=== PATIENT | female | born 1990 | race Caucasian/White ===

== ENCOUNTER → 2017-11-13 15:06 | Outpatient (CLI) | payer OTHER, SELFPAY ==
[2017-11-13 15:32] LABS: Absolute Lymphocyte Count 1.48 X10^3/ul (0.83-4.51); Absolute Neutrophil Count 7.2 X10^3/uL (2.0-7.7); Basophil# 0.02 X10^3/uL; Basophil% 0.2 % (0-1); Eosinophil# 0.37 X10^3/uL; Eosinophils% 3.8 % (0-5); Hematocrit 32.5 % (37-47); Hemoglobin 10.8 g/dl (12.0-15.0); Lymphocyte # 1.48 X10^3/ul (4.0); Lymphocyte % 15.2 % (19-41); Mean Corp Hgb Conc 33.2 g/gl (32-36); Mean Corpuscular Hgb 31.2 pg (27.0-32.0); Mean Corpuscular Volume 93.9 fL (81-99); Monocyte# 0.56 X10^3/uL; Monocyte% 5.8 % (0-10); Neutrophil # 7.21 X10^3/uL (2.7-7.7); Neutrophil % 74.1 % (47-70); Platelet Count 197 K/mm3 (150-450); RBC Distribution Width CV 13.6 % (11.6-14.6); RBC Distribution Width SD 44.9 fl (35.1-43.9); Red Blood Count 3.46 M/mm3 (4.2-5.4); White Blood Count 9.7 K/mm3 (4.4-11.0)
[2017-11-13 15:35] LABS: POSITIVE COUNT NO; POSITIVE DIFFERENTIAL NO; POSITIVE MORPHOLOGY NO
[2017-11-13 16:11] LABS: Glucose Challenge Gest 1H 50g 118 mg/dL (70-140)
== END ==
PROVIDERS: Family Provider Family Medicine; PCP Family Medicine; Visit Provider Obstetrics & Gynecology
DX: Z34.81 Encounter for supervision of other normal pregnancy, first trimester (principal)
CPT/HCPCS: 36415; 82950; 85025

== ENCOUNTER → 2017-12-25 15:41 | Outpatient (CLI) | payer OTHER, SELFPAY ==
[2017-12-25 16:10] LABS: Absolute Lymphocyte Count 2.71 X10^3/ul (0.83-4.51); Absolute Neutrophil Count 7.7 X10^3/uL (2.0-7.7); Basophil# 0.01 X10^3/uL; Basophil% 0.1 % (0-1); Eosinophil# 0.27 X10^3/uL; Eosinophils% 2.4 % (0-5); Hematocrit 33.9 % (37-47); Hemoglobin 11.2 g/dl (12.0-15.0); Lymphocyte # 2.71 X10^3/ul (4.0); Lymphocyte % 23.6 % (19-41); Mean Corpuscular Hgb 31.3 pg (27.0-32.0); Mean Corpuscular Volume 94.7 fL (81-99); Mean Platelet Vol. 10.1 fl (6.2-12.0); Monocyte% 6.1 % (0-10); Neutrophil # 7.68 X10^3/uL (2.7-7.7); Platelet Count 182 K/mm3 (150-450); RBC Distribution Width CV 14.9 % (11.6-14.6); RBC Distribution Width SD 49.4 fl (35.1-43.9); Red Blood Count 3.58 M/mm3 (4.2-5.4); White Blood Count 11.5 K/mm3 (4.4-11.0)
[2017-12-25 16:12] LABS: POSITIVE COUNT NO; POSITIVE DIFFERENTIAL NO; POSITIVE MORPHOLOGY NO
== END ==
PROVIDERS: Family Provider Family Medicine; PCP Family Medicine; Visit Provider Nurse Practitioner Women's Health
DX: O99.013 Anemia complicating pregnancy, third trimester (principal); O12.10 Gestational proteinuria, unspecified trimester; Z3A.00 Weeks of gestation of pregnancy not specified
CPT/HCPCS: 36415; 85025

== ENCOUNTER → 2017-12-25 18:15 | Outpatient (CLI) | payer OTHER, SELFPAY ==
[2017-12-25 18:48] LABS: Protein, Urine (Random) 18.6 mg/dL (<11.9); Protein:Creat Ratio 85 mg/g CRE (0-200)
== END ==
PROVIDERS: Family Provider Family Medicine; PCP Family Medicine; Visit Provider Nurse Practitioner Women's Health
DX: O12.10 Gestational proteinuria, unspecified trimester (principal); Z3A.00 Weeks of gestation of pregnancy not specified
CPT/HCPCS: 82570; 84156

== ENCOUNTER → 2018-01-08 16:31 | Outpatient (CLI) | payer OTHER, SELFPAY ==
[2018-01-08 19:11] LABS: Group B Strep DNA By PCR Negative (Negative); Internal Control PASS; Probe Check PASS; Specimen Processing Control PASS
== END ==
PROVIDERS: Family Provider Family Medicine; PCP Family Medicine; Visit Provider Obstetrics & Gynecology
DX: Z34.81 Encounter for supervision of other normal pregnancy, first trimester (principal)
CPT/HCPCS: 87081; 87653

== ENCOUNTER 2018-02-02 20:15 | Inpatient (IN) | payer OTHER, SELFPAY ==
--- NOTE | 2018-02-02 20:15 | DT_ITS ---
This patient was seen during an EMR downtime January 28, 2018 - February 04, 2018. This patient may have a combination of paper and electronic documentation or all paper documentation. All documentation is viewable within the e-chart portion of [facility] for each patient visit.
--- NOTE | 2018-02-04 13:49 | DCINST_ITS ---
Discharge Diet: No Restrictions Discharge Activity: Return to Normal Activity, May not drive while taking narcotic pain medications., May Shower May resume sexual activity in: 4-6 weeks Call your doctor if your incision/area has: Continuous Slow Oozing, Sudden Increased Bleeding, Increased Pain/ Swelling, Increased Redness, Foul Smelling Discharge Additional Instructions: If you experience any of the following, contact your healthcare provider. * Bleeding that soaks a pad every hour for 2 hours * Fever 100.4 or higher * Unrelieved incision or abdominal pain * Swelling, redness, discharge or bleeding from your incision or episiotomy site * Your incision begins to separate * Problems urinating (including inability to urinate or burning while urinating) . * Visual changes * Severe headache * Flu-like symptoms * Pain or redness in one of both of your breasts * Pain, warmth, tenderness or swelling in your legs, especially the calf area * Frequent nausea and vomiting * Symptoms of depression or anxiety If you experience any of the following, call 911 or go to the nearest Emergency Room. * Chest pain * Problems breathing * Seizure activity * Partial or complete paralysis of a body part, slurred speech, weakness or drooping of the face, or a sudden inability to walk or hold your balance Allergies/Adverse Reactions: Allergies ciprofloxacin [From Cipro] Allergy (Intermediate, Verified 01/22/18 15:20) rash penicillin G Allergy (Intermediate, Verified 01/22/18 15:20) rash flaygl Allergy (Intermediate, Uncoded 01/15/18 15:50) rash Medications to take at Discharge vitamin,calcium,yyxmrusr-zhet-dqnqh acid tablet 1 tab PO QDAY 09/18/17 Please Follow Up With: Trish Schrader MD - [phone] When: Call to make an appointment with your doctor in 6 weeks. If you had elevated Blood pressure or 4th degree laceration you will need to be seen in 2 weeks. Primary Care Physician: Joan Saez MD [Primary Care Provider] -
--- NOTE | 2018-02-04 13:49 | PCM.DCVAG ---
Discharge Diet: No Restrictions Discharge Activity: Return to Normal Activity, May not drive while taking narcotic pain medications., May Shower May resume sexual activity in: 4-6 weeks Call your doctor if your incision/area has: Continuous Slow Oozing, Sudden Increased Bleeding, Increased Pain/ Swelling, Increased Redness, Foul Smelling Discharge Additional Instructions: If you experience any of the following, contact your healthcare provider. Bleeding that soaks a pad every hour for 2 hours Fever 100.4 or higher Unrelieved incision or abdominal pain Swelling, redness, discharge or bleeding from your incision or episiotomy site Your incision begins to separate Problems urinating (including inability to urinate or burning while urinating). Visual changes Severe headache Flu-like symptoms Pain or redness in one of both of your breasts Pain, warmth, tenderness or swelling in your legs, especially the calf area Frequent nausea and vomiting Symptoms of depression or anxiety If you experience any of the following, call 911 or go to the nearest Emergency Room. Chest pain Problems breathing Seizure activity Partial or complete paralysis of a body part, slurred speech, weakness or drooping of the face, or a sudden inability to walk or hold your balance Allergies/Adverse Reactions: Allergies ciprofloxacin [From Cipro] Allergy (Intermediate, Verified 01/22/18 15:20) rash penicillin G Allergy (Intermediate, Verified 01/22/18 15:20) rash flaygl Allergy (Intermediate, Uncoded 01/15/18 15:50) rash Medications to take at Discharge vitamin,calcium,avmsmnwf-juyq-zudly acid tablet 1 tab PO QDAY 09/18/17 Please Follow Up With: Trish Schrader MD - [phone] When: Call to make an appointment with your doctor in 6 weeks. If you had elevated Blood pressure or 4th degree laceration you will need to be seen in 2 weeks. Primary Care Physician: Joan Saez MD [Primary Care Provider] -
[2018-02-04 14:15] VITALS: BP 96/62; PULSE 68; RESP 16; TEMP 36.5; O2SAT 97
[2018-02-04] MEDS: Acetaminophen 500 MG Tablet 1000 MG PO (14:18)
[2018-02-05 15:43] LABS: Hematocrit 36.2 % (37-47); Hemoglobin 12.2 g/dl (12.0-15.0); Mean Corp Hgb Conc 33.7 g/gl (32-36); Mean Corpuscular Hgb 31.6 pg (27.0-32.0); Mean Corpuscular Volume 93.8 fL (81-99); Mean Platelet Vol. 10.7 fl (6.2-12.0); Platelet Count 182 K/mm3 (150-450); RBC Distribution Width CV 14.4 % (11.6-14.6); RBC Distribution Width SD 49.4 fl (35.1-43.9); Red Blood Count 3.86 M/mm3 (4.2-5.4); Scan Indicated on CBC? Y/N NO; White Blood Count 12.8 K/mm3 (4.4-11.0)
== END 2018-02-04 15:50 | disposition home or self-care (01) | DRG 775 ==
PROVIDERS: Admitting Provider Obstetrics & Gynecology; Family Provider Family Medicine; PCP Family Medicine; Visit Provider Obstetrics & Gynecology
DX: O80 Encounter for full-term uncomplicated delivery (principal); Z37.0 Single live birth; Z3A.39 39 weeks gestation of pregnancy
CPT/HCPCS: 59050; 85027; 86850; 86900; 99218; J7120; G0378

== ENCOUNTER 2018-02-06 10:58 | Emergency (ER) | payer OTHER, SELFPAY ==
[2018-02-06 10:58] VITALS: BP 121/67; PULSE 83; RESP 12; TEMP 36.6; BMI 25.8
--- NOTE | 2018-02-06 11:17 | RAD_ITS ---
STUDY: X-RAY - ABDOMEN/PELVIS REASON FOR EXAM: Female, 27 years old. Constipation. Status post vaginal delivery. TECHNIQUE: AP supine and upright views of the abdomen and pelvis. COMPARISON: None. FINDINGS: Normal visualized lung bases. There is a moderate amount of colonic fecal material in the rectum. There is no demonstrated free abdominal air. The visualized liver, spleen and kidneys are grossly normal in size and morphology. Normal soft tissue structures. Normal visualized osseous structures. RAD/Abd Decub and/or Erect(Portabl IMPRESSION: There is a moderate amount of colonic fecal material in the rectum. Electronically Signed: Chau Castelan MD at 11:44 EDT Tel , Service support ,
[2018-02-06] MEDS: Magnesium Citrate 300 ML PO (13:15)
--- NOTE | 2018-02-06 14:23 | ED.RN ---
PT W/VERY LARGE AMT SOFT STOOL. REPORTS RELIEF. HYGIENE CARE COMPLETED. DR BETHEA INFORMED
--- NOTE | 2018-02-06 15:04 | ED.VISSUMM ---
- ER Visit Summary Date of Service: 02/06/18 Chief Complaint: Constipation History of Present Illness: The patient is a 27 F status post vaginal delivery on Sunday. Patient states she is doing well. She has a bowel movement since before she had a delivery. Complaining of fullness. She is Ab0. Denies any dysuria. No fever. No prior abdominal surgeries. Physical Examination: Well-appearing young female. Vital signs are stable afebrile. She does not look septic or toxic. No distress. H EENT exam unremarkable moist wheeze members. Neck nontender. Lungs clear to auscultation bilaterally. Heart regular rate and rhythm no murmur. Abdomen is soft and nontender. Normal bowel sounds no peritoneal signs. No signs of obstruction. No hernias or masses. No distention. She is moving all 4 extremities neurovascular intact. Back exam nontender. Neurologically she is awake and alert. Test Results: KUB was obtained shows increased stool in the rectal vault. Emergency Department Course and Treatment: Patient has constipation and home enemas, softeners and magnesium citrate. Treatment Plan: Nursing attempted a soapsuds enema and it was really unsuccessful. Patient was then given the option of additional magnesium citrate or digital disimpaction. She drinks 300 cc more magnesium citrate had a large bowel movement with significant relief. Currently she is resting comfortably and feels comfortably discharged home. Disposition: Discharge Impression: Acute constipation Status post vaginal delivery This note was generated with [employer] dictation software. It may contain incorrect words, spelling, and punctuation that were not noted in review of the chart prior to signing ED Disposition - Plan for ED Patient: Chief Complaint: Constipation Referrals: Joan Saez MD [Primary Care Provider] -
--- NOTE | 2018-02-06 15:07 | ED.DEP ---
ED Disposition - Plan for ED Patient: Disposition: Home or Assisted Living Chief Complaint: Constipation Instructions: ED Constipation Referrals: Joan Saez MD [Primary Care Provider] - 1-2 Days if not improving Additional Instructions: Plenty of fluids and rest. Continue fluids, fiber and water to prevent further constipation. Follow-up your primary care physician if not improving or return to ER feeling worse.
[2018-02-06 15:21] VITALS: BP 121/79; PULSE 68; RESP 16; O2SAT 100
--- NOTE | 2018-02-06 15:22 | ED.RN ---
THIS NURSE REVIEWED D/C INSTRUCTIONS WITH PT. PT VERBALIZED UNDERSTANDING OF INSTRUCTIONS. PT DENIES FURTHER NEEDS OR QUESTIONS AT THIS TIME.
== END 2018-02-06 15:22 | disposition home or self-care (01) ==
PROVIDERS: Emergency Provider Emergency Medicine; Family Provider Family Medicine; PCP Family Medicine
DX: K59.00 Constipation, unspecified (principal)
CPT/HCPCS: 74019; 99283

== ENCOUNTER 2018-02-07 14:45 | Outpatient (CLI) | payer OTHER, SELFPAY | END 2018-02-07 15:45 | disposition home or self-care (01) | LOC: WPOUT 14:52 → WP 14:53 | PROVIDERS: Family Provider Family Medicine; PCP Family Medicine; Visit Provider Obstetrics & Gynecology | DX: Z39.1 Encounter for care and examination of lactating mother (principal) | CPT/HCPCS: 96152 ==

== ENCOUNTER 2018-02-14 11:05 | Outpatient (CLI) | payer OTHER, SELFPAY | END 2018-02-14 12:05 | disposition home or self-care (01) | LOC: WPOUT 11:15 → WP 11:15 | PROVIDERS: Family Provider Family Medicine; PCP Family Medicine; Visit Provider Obstetrics & Gynecology | DX: Z39.1 Encounter for care and examination of lactating mother (principal) | CPT/HCPCS: 96152 ==

== ENCOUNTER → 2018-06-03 13:17 | Outpatient (CLI) | payer OTHER, SELFPAY | PROVIDERS: Family Provider Family Medicine; PCP Family Medicine | DX: K50.90 Crohn's disease, unspecified, without complications (principal) | CPT/HCPCS: 36415 ==

== ENCOUNTER 2019-04-27 12:45 | Emergency (ER) | payer OTHER, SELFPAY ==
[2019-04-27 12:47] VITALS: BP 112/85; PULSE 82; RESP 16; TEMP 36.1; O2SAT 98; BMI 22.6
--- NOTE | 2019-04-27 13:26 | ED.DCSUM_ITS ---
History of Present Illness Chief Complaint: Nausea/Vomiting Informant: Patient - Abdominal Pain/Flank Pain Onset: Today Timing: Continuous Location: Diffuse - sore abdominal wall Current Severity: Moderate Maximum Severity: Moderate Worsened by: Food Relieved by: Nothing - Nausea/Vomiting/Emesis GI Symptom: Nausea, Vomiting Onset: Today Quality: Nonbilious. Negative for: Blood streaks, Coffee ground, Hematemesis Severity: Severe - Diarrhea/Melena/Hematochezia GI Symptom: Negative for: Diarrhea, Melena, Hematochezia Associated Symptoms: Negative for: Dysuria, Frequency, Hematuria, Urgency Narrative: Patient states she was at her sister's wedding yesterday, and as a result last night she drank a lot of alcohol. She thinks she drank too much. She has been vomiting all morning. She denies any abdominal pain, other than abdominal wall muscular soreness from all of the vomiting/dry-heaving. She has a history of Crohn's, and has been well-controlled without the need for maintenance medications, states she can tell when she is having a flare-up, and does not feel like that is going on now. She usually can trigger the Crohn's symptoms with certain foods, such as strawberries, and denies having any of those foods recently or yesterday. Past Medical History - Allergies and Home Meds Allergies/Adverse Reactions: Allergies ciprofloxacin [From Cipro] Allergy (Intermediate, Verified 04/27/19 12:47) rash penicillin G Allergy (Intermediate, Verified 04/27/19 12:47) rash metronidazole [From Flagyl] Allergy (Verified 04/27/19 12:47) Rash nickel Allergy (Verified 04/27/19 12:47) Rash Primary Care Physician: Joan Saez MD [Primary Care Provider] - 1-2 Days if not improving Smoking Status: Never smoker Review of Systems General: Reports: Malaise. Denies: Chills, Fever, Sweats Eyes: Denies: Visual changes - bilaterally, Diplopia ENT: Denies: Rhinorrhea, Sore throat Cardiovascular: Denies: Chest pain, Palpitations Respiratory: Denies: Dyspnea, Cough, Dyspnea on exertion Gastrointestinal: Reports: Abdominal pain, Nausea, Vomiting. Denies: Diarrhea, Melena, Hematochezia Genitourinary: Denies: Dysuria, Hematuria, Frequency Musculoskeletal: Reports: Myalgias - muscles cramping up. Denies: Back pain, Swelling, Extremity Pain Skin: Denies: Rash, Wounds Neurological: Denies: Headache, Weakness, Numbness Physical Exam Vital Signs/Narrative: Vital Signs Temp Pulse Resp BP Pulse Ox 04/27/19 12:47 96.9 F L 82 16 112/85 H 98 Inital Vital Signs reviewed: Yes General: Well nourished, Well developed, No Acute Distress Head: Normocephalic, Atraumatic Eyes: Perrl, EOMI ENT: Moist mucous membranes, No rhinorrhea Neck: Supple, Nontender Cardiovascular: Regular rate, Regular rhythm, No murmurs Respiratory: No distress, CTA bilaterally, Chest nontender Abdomen: Soft, Nontender, Nondistended, Normal bowel sounds, No masses Back: Nontender, Normal Inspection Extremities: Nontender, No edema Skin: Normal color, No rash, No Trauma Neurological: Alert, Oriented x3, Cranial nerves II-XII grossly intact, Normal Strength, Normal Sensation Psychological: Normal affect, Normal Mood Diagnostic/Tx/Re-eval Laboratory Tests 04/27/19 04/27/19 Range/Units 13:27 13:27 WBC 6.2 (4.4-11.0) K/mm3 RBC 4.03 L (4.2-5.4) M/mm3 Hgb 12.2 (12.0-15.0) g/dL Hct 36.0 L (37-47) % MCV 89.3 (81-99) fL MCH 30.3 (27.0-32.0) pg MCHC 33.9 (32-36) g/dL RDW Std Deviation 41.1 (35.1-43.9) fl RDW Coeff of Timothy 12.5 (11.6-14.6) % Plt Count 218 (150-450) K/mm3 MPV 10.1 (6.2-12.0) fl Immature Gran % (Auto) 0.600 (0.0-0.9) % Neut % (Auto) 79.2 H (47-70) % Lymph % (Auto) 16.5 L (19-41) % [place] % (Auto) 3.2 (0-10) % Eos % (Auto) 0.2 (0-5) % Baso % (Auto) 0.3 (0-1) % Absolute Neuts (auto) 4.9 (2.0-7.7) X10^3/uL Absolute Lymphs (auto) 1.02 (0.83-4.51) X10^3/uL Nucleated RBC % 0 (0-5) % Sodium 140 (136-145) mmol/L Potassium 3.8 (3.5-5.1) mmol/L Chloride 108 H (98-107) mmol/L Carbon Dioxide 27.0 (21.0-32.0) mmol/L Anion Gap 5 (5-15) BUN 8 (7-18) mg/dL Creatinine 0.75 (0.55-1.02) mg/dL Estim Creat Clear Calc 102.68 ml/min Est GFR (MDRD) Af Amer 116 (>60) mL/min Est GFR (MDRD) Non-Af 96 (>60) mL/min BUN/Creatinine Ratio 10.6 (10-20) RATIO Glucose 111 H (74-106) mg/dL Calcium 8.8 (8.5-10.1) mg/dL Lipase 97 (73-393) U/L - Medical Decision Making Labs are all reassuringly within normal limits, she has no significant letter like disorders that need specific treatment. She was given fluids and Zofran, she was feeling better until she started drinking fluids, and she started feeling nauseated again so she was treated with Phenergan and observed. After a few hours, she is feeling much better, prefers to go home and rest. I do agree that this was likely due to the significant alcohol ingestion. Her abdomen was benign and she has no leukocytosis. She was prescribed Zofran and encouraged to drink plenty of fluids and to return for worsening symptoms and she is comfortable with this plan. ED Disposition - Plan for ED Patient: Disposition: Home or Assisted Living Diagnosis: Acute gastritis without bleeding Instructions: VOMITING (4y-Adult) Prescriptions: Ondansetron [Zofran] 8 mg PO Q8H PRN PRN #12 tab PRN Reason: Nausea Transmission Status: Pending to [id number] Referrals: Joan Saez MD [Primary Care Provider] - 1-2 Days if not improving
[2019-04-27] MEDS: Ondansetron 4 MG/2 ML Vial IV (13:28)
[2019-04-27] MEDS: 0.9% Normal Saline 1,000 ML 1000 ML IV (13:34)
[2019-04-27 13:50] LABS: Anion Gap 5 (5-15); BUN 8 mg/dL (7-18); BUN/Creat Ratio 10.6 RATIO (10-20); Calcium,Total 8.8 mg/dL (8.5-10.1); Chloride 108 mmol/L (98-107); Creatinine, Serum 0.75 mg/dL (0.55-1.02); EST Glomerular Filtration Rate 96 mL/min (>60); Est Glom Filt Rate - Afr Amer 116 mL/min (>60); Estimated Creatinine Clearance 102.68 ml/min; Glucose 111 mg/dL (74-106); Lipase 97 U/L (73-393); Potassium 3.8 mmol/L (3.5-5.1); Sodium Level 140 mmol/L (136-145)
[2019-04-27 13:58] LABS: Absolute Lymphocyte Count 1.02 X10^3/uL (0.83-4.51); Absolute Neutrophil Count 4.9 X10^3/uL (2.0-7.7); Basophil# 0.02 X10^3/uL; Basophil% 0.3 % (0-1); Eosinophil# 0.01 X10^3/uL; Eosinophils% 0.2 % (0-5); Hemoglobin 12.2 g/dL (12.0-15.0); Lymphocyte # 1.02 X10^3/ul (4.0); Lymphocyte % 16.5 % (19-41); Mean Corp Hgb Conc 33.9 g/dL (32-36); Mean Corpuscular Hgb 30.3 pg (27.0-32.0); Mean Corpuscular Volume 89.3 fL (81-99); Mean Platelet Vol. 10.1 fl (6.2-12.0); Monocyte% 3.2 % (0-10); NRBC Flagged by Analyzer 0 % (0-5); Neutrophil % 79.2 % (47-70); Platelet Count 218 K/mm3 (150-450); RBC Distribution Width CV 12.5 % (11.6-14.6); RBC Distribution Width SD 41.1 fl (35.1-43.9); Red Blood Count 4.03 M/mm3 (4.2-5.4); White Blood Count 6.2 K/mm3 (4.4-11.0)
[2019-04-27] MEDS: Ketorolac 30 MG/ML Syringe IV (15:06)
[2019-04-27 15:11] VITALS: BP 106/75; PULSE 67; RESP 16; O2SAT 98
[2019-04-27] MEDS: proMETHazine 25 MG/ML Syringe 12.5 MG IV (16:28)
[2019-04-27 17:38] VITALS: BP 112/69; PULSE 73; RESP 16; O2SAT 98
--- NOTE | 2019-04-27 17:41 | ED.RN ---
REVIEWED D/C INSTRUCTIONS, FOLLOW UP CARE, AND S/S THAT WOULD WARRANT A RETURN TO THE ED WITH PT. PT VERBALIZED AN UNDERSTANDING AND DENIES FURTHER QUESTIONS FOR THIS RN. PT SKIN P/W/D, RESP EVEN AND UNLABORED, PT A&O X 3, NO DISTRESS NOTED. PT AMBULATED OUT OF ED, GAIT STEADY.
== END 2019-04-27 17:41 | disposition home or self-care (01) ==
PROVIDERS: Emergency Provider Emergency Medicine; Family Provider Family Medicine; PCP Family Medicine
DX: K29.00 Acute gastritis without bleeding (principal); K50.90 Crohn's disease, unspecified, without complications
CPT/HCPCS: 80048; 83690; 85025; 96361; 96374; 96375; 99283; J7030; A4216; J2405

== ENCOUNTER 2021-01-31 03:03 | Emergency (ER) | payer MEDICAID, SELFPAY ==
[2021-01-31 03:04] VITALS: BP 129/85; PULSE 86; RESP 16; TEMP 36.2; O2SAT 95; BMI 28.0
--- NOTE | 2021-01-31 03:37 | EDS_ITS ---
HPI History of Present Illness Chief Complaint: Complaint Informant: patient Onset/Context/Timing Onset: Today Context: Sudden Onset Timing: Continuous Quality: Pressure, urgency, squeezing Location: Suprapubic Worsened by: Urination Relieved by: Nothing Narrative Narrative: Patient presents with dysuria and hematuria that began today. Patient states that she has been having some intermittent symptoms over the past week. Patient states the pain became acutely worse tonight. Patient noted some blood in her urine tonight. Patient states the pain feels like a pressure and urgency over the suprapubic area. Patient states it is worse with urination. Patient admits to some chills and sweats. Patient denies any fevers. Patient admits to nausea but denies any vomiting. [facility] Medical History (Updated 01/31/21 @ 04:[address] Fredy oGre DO) Anal fissure Crohn's disease Home Medications sulfamethoxazole-trimethoprim 1 tab PO BID #6 tablet 01/31/21 [Rx Last Taken Unknown] Allergy/AdvReac Type Severity Reaction Status Date / Time ciprofloxacin [From Cipro] Allergy Intermediate rash Verified 01/31/21 03:09 penicillin G Allergy Intermediate rash Verified 01/31/21 03:09 metronidazole [From Flagyl] Allergy Rash Verified 01/31/21 03:09 nickel Allergy Rash Verified 01/31/21 03:09 Family History Father Diabetes Multiple sclerosis Mother No problems noted. Social History Smoking Status: Never smoker alcohol intake: never substance use type: does not use what type of physical activity do you participate in: none seatbelt use: always additional social history: single ROS ROS ED Constitutional Constitutional ED: Reports chills and sweats; Denies fever(s) Eyes Eyes: Reports blurry vision; Denies diplopia ENT ENT ED: Denies rhinorrhea or sore throat Cardiovascular Cardiovascular: Denies chest pain or palpitations Respiratory/Chest Respiratory/Chest: Denies cough or dyspnea Gastrointestinal Gastrointestinal: Reports abdominal pain and nausea; Denies vomiting Genitourinary Genitourinary ED: Reports dysuria and hematuria Musculoskeletal Musculoskeletal: Denies back pain or neck pain Integumentary Denies abscess or rash Neurologic Neurologic: Reports headache(s); Denies weakness Allergic/Immunologic Allergic/Immunologic ED: Denies mouth swelling or urticaria EXAM Physical Exam Const Vital Signs: 01/31/21 03:04 01/31/21 04:35 Temperature 97.2 F L Temperature Source Temporal Pulse Rate 86 Respiratory Rate 16 16 Blood Pressure 129/85 H Blood Pressure Mean 99 Pulse Ox 95 Oxygen Delivery Method Room Air Positive well nourished and well developed General Appearance ED: well developed HEENT Reports moist mucous membranes Neck supple and no JVD Resp normal respiratory effort and clear to auscultation bilaterally Cardio regular rate and regular rhythm GI normal to inspection, nondistended, normoactive bowel sounds Palpation: soft and tender suprapubic; Negative for guarding or rebound tenderness present Neuro oriented x3, CN's II-XII intact bilaterally and no sensory deficits noted Sensorium / Orientation: alert Motor Exam: strength 5/5 throughout Psych mental status grossly normal MDM MDM MDM Narrative Medical decision making narrative: Urinalysis was obtained. Leukocyte esterase was 500. There were greater than 100 red blood cells and greater than 100 white blood cells. Urine test was negative. Urine culture was ordered. Patient was given a dose of Bactrim here. Patient was given a prescription for Bactrim. Patient was instructed to drink plenty of fluids. Patient was instructed to follow-up with her primary care physician in 5 to 7 days. Patient understood and was agreeable with the plan. All questions were answered. Lab Data Attestation: I reviewed the patient's lab results. Labs: Laboratory Results - last 24 hr 01/31/21 03:04 Urine Color Brown Urine Clarity Cloudy Urine pH 5.0 Ur Specific [place] 1.020 Urine Protein 500 H Urine Glucose (UA) Normal Urine Ketones 5 H Urine Occult Blood 250 H Urine Nitrite Negative Urine Bilirubin Negative Urine Urobilinogen Normal Ur Leukocyte Esterase 500 H Urine RBC > 100 SEEN Urine WBC >100 SEEN Ur Squamous Epith Cells 0-5 SEEN Urine Bacteria 1+ Urine Mucus 0 SEEN Urine Test Negative Discharge Plan Triage Chief Complaint: Complaint ED Provider: Fredy Gore Dx/Rx/DC Orders Clinical Impression: Acute hemorrhagic cystitis Instructions: ED Bladder Infection, Female (Adult) Prescriptions: New sulfamethoxazole-trimethoprim [sulfamethoxazole-trimethoprim] 1 TABLET tablet 1 tab PO BID Qty: 6 RF: 0 Primary Care Provider: Joan Saez Referrals: Joan Saez MD [Primary Care Provider] - 3-5 Days Disposition Disposition: Home, self care Discharge Date/Time: 01/31/21 04:35
[2021-01-31 03:45] LABS: Mucous, Urine 0 SEEN /hpf (<or=2+)
[2021-01-31 03:55] LABS: Color, Urine Brown (Yellow); Glucose, Dipstick Normal (Normal); Ketone-Dipstick 5 mg/dl (Negative); Leukocyte Esterase-Dipstick 500 /ul (Negative); Nitrite-Dipstick Negative (Negative); Occult Blood-Urine 250 /ul (Negative); Protein-Dipstick 500 mg/dl (Negative); Urine Bilirubin Dipstick Negative (Negative); Urine Clarity Cloudy (Clear); Urine Urobilinogen Normal (Normal)
[2021-01-31 04:09] LABS: Bacteria 1+ /hpf (None Seen); Internal QC Validated? YES +Cl - CLEAR BKGD; Pregnancy, Urine Negative Negative; Red Blood Cells-Urine > 100 SEEN /hpf (0-5); Squamous Epithelial Cells - UA 0-5 SEEN /hpf (5-10); White Blood Cells >100 SEEN /hpf (0-5)
[2021-01-31] MEDS: Smz/Tmp Ds Tablet 1 TABLET PO (04:32)
[2021-01-31 04:35] VITALS: RESP 16
== END 2021-01-31 04:35 | disposition home or self-care (01) ==
PROVIDERS: Emergency Provider Emergency Medicine; PCP Family Medicine
DX: N30.01 Acute cystitis with hematuria (principal)
CPT/HCPCS: 81001; 81025; 87086; 87088; 99283; A4216

== ENCOUNTER → 2021-06-13 16:43 | Outpatient (CLI) | payer OTHER, MEDICAID, SELFPAY ==
[2021-06-13 18:43] LABS: T4 Free Direct 0.75 ng/dL (0.76-1.46)
== END ==
PROVIDERS: PCP Nurse Practitioner; Referring Provider Nurse Practitioner; Visit Provider Nurse Practitioner
DX: E03.9 Hypothyroidism, unspecified (principal)
CPT/HCPCS: 36415; 84439; 84443; 84481

== ENCOUNTER → 2021-08-25 12:31 | Outpatient (CLI) | payer OTHER, MEDICAID, SELFPAY ==
[2021-08-25 15:45] LABS: T4 Free Direct 0.66 ng/dL (0.76-1.46)
[2021-08-27 09:59] LABS: Thyroid Peroxidase AB > 600 IU/mL (0-34)
== END ==
PROVIDERS: PCP Nurse Practitioner; Referring Provider Internal Medicine Endocrinology, Diabetes & Metabolism; Visit Provider Internal Medicine Endocrinology, Diabetes & Metabolism
DX: E03.8 Other specified hypothyroidism (principal); E06.3 Autoimmune thyroiditis
CPT/HCPCS: 36415; 84439; 84443; 86376

== ENCOUNTER 2021-11-21 12:59 | Outpatient (CLI) | payer OTHER, MEDICAID, SELFPAY ==
[2021-11-21 15:44] LABS: T4 Free Direct 0.72 ng/dL (0.76-1.46)
== END 2021-11-21 23:59 | disposition home or self-care (01) ==
LOC: MTLAB 13:00
PROVIDERS: PCP Nurse Practitioner; Referring Provider Internal Medicine Endocrinology, Diabetes & Metabolism; Visit Provider Internal Medicine Endocrinology, Diabetes & Metabolism
DX: E03.8 Other specified hypothyroidism (principal); E06.3 Autoimmune thyroiditis
CPT/HCPCS: 36415; 84439; 84443

== ENCOUNTER → 2022-01-09 | Outpatient (CLI) | payer OTHER, MEDICAID, SELFPAY | END | disposition home or self-care (01) | PROVIDERS: PCP Nurse Practitioner Family; Referring Provider Internal Medicine Endocrinology, Diabetes & Metabolism; Visit Provider Internal Medicine Endocrinology, Diabetes & Metabolism | DX: E03.8 Other specified hypothyroidism (principal); E06.3 Autoimmune thyroiditis | CPT/HCPCS: 36415; 84439; 84443 ==

== ENCOUNTER → 2022-02-08 | Outpatient (CLI) | payer OTHER, MEDICAID, SELFPAY ==
[2022-02-08 15:39] LABS: T4 Free Direct 0.82 ng/dL (0.76-1.46); Thyroid Stim Hormone (TSH) 7.44 uIU/mL (0.358-3.74)
== END | disposition home or self-care (01) ==
LOC: MTLAB 12:31
PROVIDERS: PCP Nurse Practitioner Family; Referring Provider Internal Medicine Endocrinology, Diabetes & Metabolism; Visit Provider Internal Medicine Endocrinology, Diabetes & Metabolism
DX: E03.8 Other specified hypothyroidism (principal); E06.3 Autoimmune thyroiditis
CPT/HCPCS: 36415; 84439; 84443

== ENCOUNTER → 2022-04-13 | Outpatient (CLI) | payer OTHER, MEDICAID, SELFPAY ==
[2022-04-13 10:51] LABS: T4 Free Direct 0.85 ng/dL (0.76-1.46)
== END | disposition home or self-care (01) ==
PROVIDERS: PCP Nurse Practitioner Family; Referring Provider Internal Medicine Endocrinology, Diabetes & Metabolism; Visit Provider Internal Medicine Endocrinology, Diabetes & Metabolism
DX: E03.8 Other specified hypothyroidism (principal); E06.3 Autoimmune thyroiditis
CPT/HCPCS: 36415; 84439; 84443

== ENCOUNTER → 2022-07-29 | Outpatient (CLI) | payer OTHER, MEDICAID, SELFPAY ==
[2022-07-29 11:31] LABS: T4 Free Direct 1.17 ng/dL (0.76-1.46); Thyroid Stim Hormone (TSH) 0.32 uIU/mL (0.358-3.74)
== END | disposition home or self-care (01) ==
LOC: LAB 09:49
PROVIDERS: PCP Nurse Practitioner Family; Referring Provider Internal Medicine Endocrinology, Diabetes & Metabolism; Visit Provider Internal Medicine Endocrinology, Diabetes & Metabolism
DX: E03.8 Other specified hypothyroidism (principal); E06.3 Autoimmune thyroiditis
CPT/HCPCS: 36415; 84439; 84443

== ENCOUNTER → 2023-10-01 | Outpatient (CLI) | payer OTHER, SELFPAY ==
--- OUTSIDE RECORDS SUMMARY | 2023-10-01 08:28 | XMS RPT_ITS | CCD ---
Author Name Unknown Address [address] [place] [address] Organization [facility] Care Team Providers Care Lead Slot Technician Name Role Phone Debbie Hare CNP Unavailable Fredy Trevizo Unavailable Galindo Peace LPN Unavailable Unavailable Unavailable Unavailable Debbie Hare Unavailable Dr. Red Brownlee DO Unavailable Eddie Hoyt Unavailable Gravius EFRAIN, Starr Unavailable Unavailable Debbie Hare Unavailable Fredy Trevizo Unavailable Debbie Hare Unavailable Unavailable Debbie Hare Unavailable Kayla Perkins LPN Unavailable Unavailable Yaquelin Castellano CNP Unavailable Debbie Hare Attending Unavailable Debbie Hare Consulting Unavailable Fredy Trevizo Unavailable Anastasiya Whittaker MA Unavailable Unavailable Allergies Allergy Classification Reported Allergen(s) Allergy Type Date of Onset Reaction(s) Facility Nitroimidazoles (antibiotic) (2 sources) metroNIDAZOLE; Translations: [Flagyl *ANTI-INFECTIVE AGENTS - MISC.*] Drug [facility] Work Phone: Quinolones (antibiotic) (2 sources) Ciprofloxacin; Translations: [Cipro *FLUOROQUINOLONE S*] Drug Allergy [facility] Work Phone: Medications Completed/Discontinued Medications Medication Drug Class(es) Dates Sig (Normalized) Sig (Original) azithromycin 250 mg oral tablet (7 sources) Macrolide Antimicrobial Start: 11-03-2022 End: 03-05-2023 Zithromax Z-Raul 250 mg oral tablet 1 Packet as directed on dose pack;For 250 mg dose pack: take 500 mg today (day 1), then 250 mg for 4 days (days 2-5) for 0 days Quantity: 1 {Packet} Refills: 0 Ordered: 05-Mar-2023 Gregorio WALKERKayla Start : 03-Nov-2022 End : 05-Mar-2023 Inactive Problems Active Problems Problem Classification Problem Date Documented Da te Episodic/Chronic Deficiency and other anemia (20 sources) Anemia; Translations: [Anemia] 03-08-2021 Episodic Past or Other Problems Problem Classification Problem Date Documented Da te Episodic/Chronic Unclassified (9 sources) Deliveries (Parity); Translations: [Deliveries (Parity)] 03-08-2021 Results Test Name Value Interpretation Reference Range Facil ity Vital Signs Date Time Vital Sign Value Performing Clinician Facility 03-05-2023 13:38-0400 Body height 166.37 cm Kayla Perkins LPN [facility] Work Phone: 03-05-2023 13:38-0400 Body mass index (BMI) [Ratio] 29.83 kg/m2 Kayla Perkins LPN [facility] Work Phone: 03-05-2023 13:38-0400 Body surface area Derived from formula 1.91 m2 Kayla Perkins LPN [facility] Work Phone: 03-05-2023 13:38-0400 Body temperature 97.9 [degF] Kayla Perkins LPN [facility] Work Phone: Encounters Encounter Date Encounter Type Care Provider Facility Start: 03-05-2023 End: 03-05-2023 Office outpatient visit 15 minutes [facility] Start: 02-26-2023 End: 02-26-2023 Office outpatient visit 15 minutes [facility] Start: 11-03-2022 ambulatory De[facility] Start: 11-03-2022 End: 11-06-2022 Office outpatient visit 15 minutes [facility] Start: 11-03-2022 Review [facility] Start: 12-14-2021 End: 12-14-2021 Office outpatient visit 10 minutes Debbie Hare Work Phone: [facility] Start: 07-25-2021 End: 07-25-2021 Annotation/Addendum Debbie Hare Work Phone: [facility] Start: 06-13-2021 End: 06-13-2021 Office outpatient visit 15 minutes Debbie Hare Work Phone: [facility] Start: 04-11-2021 End: 04-11-2021 Office outpatient visit 15 minutes Debbie Hare Work Phone: [facility] Start: 03-15-2021 End: 03-15-2021 Office outpatient visit 15 minutes Debbie Hare Work Phone: [facility] Start: 03-08-2021 End: 03-08-2021 Office outpatient new 45 minutes Debbie Hare JUNIOR ACCOUNT MANAGER Work Phone: [facility] Procedures Date Procedure Procedure Detail Performing Clinician Start: 02-26-2023 End: 02-26-2023 Chest PA and Lateral Procedure Note: See Note; NOTES: [facility] [address] [place] [address] Chest PA and Lateral MR#: [id number] Acct: [id number] Name: YAMILETH MURRAY Rep #: [id number] : 1990 F 32 From: Kyle guevara MD PCP: BHARATH Tenorio Status: DEP AMB Study: Chest PA and Lateral Date of Exam: 02/26/23 Exam# [id number] Ordering Dr: Yaquelin Castellano STUDY: X-RAY CHEST REASON FOR EXAM: Female, 32 years old. ABNORMAL LUNG SOUNDS -- STAT TECHNIQUE: PA and lateral views of the chest. COMPARISON: None. FINDINGS: The lungs are clear and expanded. There is no demonstrated pleural abnormality. Normal size heart. Normal mediastinum and john. Normal visualized pulmonary arteries. Normal visualized aortic arch and descending thoracic aorta. Normal visualized thoracic spine. Normal visualized ribs, clavicles, and shoulders. There is no demonstrated abnormality of the visualized soft tissue structures of the upper abdomen. RAD/Chest PA and Lateral IMPRESSION: Normal x-ray examination of the chest. Electronically Signed: Kyle Sarabia MD at 11:06 EDT Reading Location ID and State: [facility] / [place] , Service support , CC: BHARATH Castellano [place]: Signed Yaquelin Castellano CNP Work Phone: Start: 10-30-2022 End: 10-30-2022 Urgent Care Visit Report Procedure Note: See Note; NOTES: [facility] [address] [place] [address] OFFICE VISIT Date of Service: 10/30/22 MR#: [id number] Acct: [id number] Name: YAMILETH MURRAY Wallace Rep #: [id number] : 1990 Provider: JONATHAN chaparro Age/Sex: 32/F Location: [facility] Status: Signed Intake Vital Signs 10/30/22 16:28 BP 115/70 Blood Pressure Location Lt brachial Position Sitting Respiration 16 Pulse 88 Pulse Source Monitor Temp 98.6 F Temp Source Temporal Pulse Oximetry (%) 98 Oxygen Delivery Method room air Intake Visit Reasons: CONCERN FOR STREP THROAT Chief Complaint: Sore throat, nausea Is patient in pain?: Yes (sore throat) Pain scale (1-10): 4 Allergies ciprofloxacin [From Cipro] Allergy (Intermediate, Verified 10/30/22 16:21) rash penicillin G Allergy (Intermediate, Verified 10/30/22 16:21) rash metronidazole [From Flagyl] Allergy (Verified 10/30/22 16:21) Rash nickel Allergy (Verified 10/30/22 16:21) Rash Medications cholecalciferol (vitamin D3) 125 mcg (5,000 unit) capsule 125 mcg PO DAILY 06/21/21 [History Confirmed 10/30/22] vitamin B complex (B Complex-Vitamin B12 tablet) 1 tab PO DAILY 11/22/21 [History Confirmed 10/30/22] levothyroxine 100 mcg tablet 100 mcg PO DAILY #60 tabs 08/17/22 [Rx Confirmed 10/30/22] multivitamin 1 tab PO DAILY 10/30/22 [History Confirmed 10/30/22] [facility] Medical History (Updated 10/30/22 @ 17:24 by Feliz CASTILLO, PA) Acute pharyngitis, unspecified Anal fissure Contact with and (suspected) exposure to other viral communicable diseases Crohn's disease 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 Social History Smoking Status: Never smoker alcohol intake: never substance use type: does not use what type of physical activity do you participate in: none seatbelt use: always additional social history: single HPI HPI Chief Complaint: Sore throat, nausea Details: YAMILETH MURRAY, is a 32 F who presents to the office today for 5 day h/o sore throat, nausea, chills. No fever, cough, dorsey. No otc products taken to assist. Nonsmoker. No other associated symptoms and no other +/- factors. ROS Const Constitutional: No other (as above) Exam Const General: cooperative, healthy appearing and no acute distress Nutritional Appearance: average body habitus Orientation: alert, awake and oriented x3 HENMT Head: normal to inspection Ears: hearing grossly normal bilaterally, external ears normal, TM's normal bilaterally and EAC's normal Nose: external nose normal, nares normal, septum normal and nasal discharge clear Face and sinus: normal facial exam, sinuses nontender and face symmetric Mouth: oral mucosae normal, lip normal, tongue normal and oropharynx normal Throat: posterior oropharynx normal, uvula midline and abnormal tonsil bilaterally erythema; no exudates and no hypertrophy Eyes General: appearance normal, both eyes and all related structures Neck Neck: normal visual inspection, full ROM, no lymphadenopathy, no meningeal signs and supple Neck mass: No Thyroid: thyroid normal Lymphatic: no lymphadenopathy noted Chest Chest palpation inspection: normal inspection of the chest Resp Effort Inspection: normal respiratory effort and able to speak in complete sentences Auscultation: Bilateral: Clear to Auscultation Cardio Palpation: normal PMI Rate: regular rate Rhythm: regular rhythm Heart Sounds: S1 normal, S2 normal, no gallops, no murmurs and no rubs Pulses: radial pulses present GI Inspection: normal to inspection Palpation: soft and no hepatosplenomegaly Skin General: no rashes or lesions noted Neuro General: patient alert, patient awake and patient oriented x3 Cognition: normal cognition Speech: speech normal Extrem General: normal to inspection Psych Appearance: grossly normal Mental Status: mental status grossly normal Mood: congruent mood Affect: normal affect Speech and Movement: speech and movement normal Attitude: cooperative Thought Process: normal Thought Content: normal Judgment: judgment good Results POC Anastasiia Rapid Strep POC Anastasiia Rapid Strep Negative Last Edit by Jolynn Trent on 10/30/22 16:43 POC SARS AG POC SARS AG Negative Last Edit by Jolynn Trent on 10/30/22 17:12 Coding Level of Care Code Off vis,new,level 2 Diagnoses Acute pharyngitis, unspecified J02.9 Contact with and (suspected) exposure to other viral communicable diseases Z20.828 Assessment and Plan Assessment and Plan (1) Acute pharyngitis, unspecified: Status: Acute (2) Contact with and (suspected) exposure to other viral communicable diseases: Status: Acute Plan: See POC results. Supportive measures as instructed. Work excuse provided. F/u w/ pcp in 5-7 days prn no change, sooner prn worse or other concerns. Pt states acknowledging understanding all the above. Orders: Orders POC Anastasiia Rapid Strep A Today POC Rapid SARS Antigen Today 10/30/22 1726 <Electronically signed by Feliz CASTILLO> Date Feliz CASTILLO Cosigner Signature: Date (if applicable) CC: Debbie Hare Start: 10-13-2022 End: 10-13-2022 Endocrinology Visit Report Procedure Note: See Note; NOTES: [facility] [address] [place] [address] OFFICE VISIT Date of Service: 10/13/22 MR#: [id number] Acct: [id number] Name: YAMILETH MURRAY Rep #: [id number] : 1990 Provider: Wallace Alcazar Age/Sex: 32/F [place] [facility] [place]: Signed Intake Vital Signs 10/13/22 08:37 Height 5 ft 6 in Weight: 180 lb 8 oz BMI 29.1 BP 129/77 H Blood Pressure Location Rt brachial Position Sitting Respiration 18 Pulse 70 Pulse Source Monitor Temp 96.7 F L Temp Source Temporal Pulse Oximetry (%) 94 Oxygen Delivery Method room air Intake Visit Reasons: 6 M FU Chief Complaint: hypothyroidism Vmware Administrator Required: No Accompanied by: Daughter Allergies ciprofloxacin [From Cipro] Allergy (Intermediate, Verified 10/13/22 08:41) rash penicillin G Allergy (Intermediate, Verified 10/13/22 08:41) rash metronidazole [From Flagyl] Allergy (Verified 10/13/22 08:41) Rash nickel Allergy (Verified 10/13/22 08:41) Rash PFSH Medical History Anal fissure Crohn's disease 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 Social History Smoking Status: Never smoker alcohol intake: never substance use type: does not use what type of physical activity do you participate in: none seatbelt use: always additional social history: single HPI HPI Chief Complaint: hypothyroidism Details: YAMILETH MURRAY, is a 32 F who presents to the office today for follow up. She is taking levothyroxine 50 mcg daily. Last TSH was 0.32. She reports palpitations when she lays down at night to go to sleep. She has no other complaints. She asks about possibility of thyroid disease in her children. Exam Const General: cooperative, healthy appearing, comfortable, no acute distress, well developed and not cushingoid Nutritional Appearance: well nourished Orientation: alert, awake and oriented x3 [facility] Head: normal to inspection Ears: hearing grossly normal bilaterally Nose: external nose normal Mouth: oral mucosae normal Eyes General: appearance normal, both eyes and all related structures Alignment and Position: alignment normal Periorbital: periorbital findings normal Eyelids: eyelids normal Conjunctivae: conjunctivae normal Neck Neck: normal visual inspection Neck mass: No Thyroid: diffusely enlarged Lymphatic: no lymphadenopathy noted Chest Chest palpation inspection: normal inspection of the chest Resp Effort Inspection: normal respiratory effort, able to speak in complete sentences, symmetric chest movement, no audible wheezes and no cough Auscultation: Bilateral: Clear to Auscultation Cardio Rate: regular rate Rhythm: regular rhythm Pulses: posterior tibial pulses present GI Inspection: normal to inspection Skin General: no rashes or lesions noted Neuro General: patient alert, patient awake and patient oriented x3 Cranial Nerves: CN's II-XI intact bilaterally Cognition: normal cognition Speech: speech normal Gait: normal gait Motor: muscle tone normal throughout Extrem General: no edema Psych Appearance: grossly normal Mental Status: mental status grossly normal Mood: congruent mood Affect: normal affect Speech and Movement: speech and movement normal Attitude: cooperative Thought Process: normal Thought Content: normal Judgment: judgment good Coding Level of Care Code Off vis,est,level 3 Diagnoses 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 Then wait 30-60 minutes before consuming any other food or beverage, especially coffee. Separate levothyroxine from vitamins by at least 4 hours. Stop taking any biotin supplement 4 days prior to having labs drawn. Discussed symptoms to watch for. Lab order entered. Check labs due to palpitations. I have spent [25] minutes today reviewing labs, records and history. Time includes coordinating care, interpretation of tests, discussion with patient's other health care providers via telephone. This also includes time I spent with the patient for exam, treatment plan and education as well as documenting clinical information. Orders: Orders T4 Free Direct Today E03.8 - Other specified hypothyroidism, E06.3 - Autoimmune thyroiditis Thyroid Stim Hormone (TSH) Today E03.8 - Other specified hypothyroidism, E06.3 - Autoimmune thyroiditis 10/13/22 0905 <Electronically signed by Eddie Hoyt MD> Date Eddie Hoyt MD Cosigner Signature: Date (if applicable) CC: BHARATH Castellano Debbie Hare Work Phone: Start: 04-14-2022 End: 04-14-2022 Endocrinology Visit Report Procedure Note: See Note; NOTES: [facility] [address] [place] [address] OFFICE VISIT Date of Service: 04/14/22 MR#: [id number] Acct: [id number] Name: YAMILETH MURRAY Rep #: [id number] : 1990 Provider: Wallace Alcazar Age/Sex: 31/F [place] [facility] Status: Signed Intake Vital Signs 04/14/22 08:03 Height 5 ft 6 in Weight: 171 lb 6 oz BMI 27.6 BP 109/72 Blood Pressure Location Lt brachial Position Sitting Respiration 16 Pulse 67 Pulse Source Monitor Temp 96.5 F L Temp Source Temporal Pulse Oximetry (%) 94 Oxygen Delivery Method room air Intake Visit Reasons: 3 M FU Chief Complaint: hypothyroidism Vmware Administrator Required: No Accompanied by: Self Is patient in pain?: No Allergies ciprofloxacin [From Cipro] Allergy (Intermediate, Verified 04/14/22 08:08) rash penicillin G Allergy (Intermediate, Verified 04/14/22 08:08) rash metronidazole [From Flagyl] Allergy (Verified 04/14/22 08:08) Rash nickel Allergy (Verified 04/14/22 08:08) Rash [facility] Medical History Anal fissure Crohn's disease 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 Social History Smoking Status: Never smoker alcohol intake: never substance use type: does not use what type of physical activity do you participate in: none seatbelt use: always additional social history: single HPI HPI Chief Complaint: hypothyroidism Details: YAMILETH MURRAY, is a 31 F who presents to the office today for hypothyroidism. She is taking levothyroxine 50 mcg alternating with 25 mcg. She states she is feeling well and her energy is good. She is progressing in therapy. She does complain of abdominal bloating/constipation. She questions why her TSH is not improving even though she is slowly increasing her dose. Exam Const General: cooperative, healthy appearing, comfortable, no acute distress, well developed and not cushingoid Nutritional Appearance: well nourished Orientation: alert, awake and oriented x3 HENMT Head: normal to inspection Ears: hearing grossly normal bilaterally Nose: external nose normal Mouth: oral mucosae normal Eyes General: appearance normal, both eyes and all related structures Alignment and Position: alignment normal Periorbital: periorbital findings abnormal (minimal puffiness) Eyelids: eyelids normal Conjunctivae: conjunctivae normal Neck Neck: normal visual inspection Neck mass: No Thyroid: diffusely enlarged Chest Chest palpation inspection: normal inspection of the chest Resp Effort Inspection: normal respiratory effort, able to speak in complete sentences, symmetric chest movement, no audible wheezes and no cough Cardio Rate: regular rate Rhythm: regular rhythm Skin General: no rashes or lesions noted Neuro General: patient alert, patient awake and patient oriented x3 Cranial Nerves: CN's II-XI intact bilaterally Cognition: normal cognition Speech: speech normal Gait: normal gait Motor: muscle tone normal throughout Extrem General: no edema Psych Appearance: grossly normal Mental Status: mental status grossly normal Mood: congruent mood Affect: normal affect Speech and Movement: speech and movement normal Attitude: cooperative Thought Process: normal Thought Content: normal Judgment: judgment good Coding Level of Care Code Off vis,est,level 3 Diagnoses 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 I explained that her thyroid is failing faster than we are increasing her dose. Increase to 50 mcg dailly. Repeat labs in 8 weeks. I have spent [24] minutes today reviewing labs, records and history. Time includes coordinating care, interpretation of tests, discussion with patient's other health care providers via telephone. This also includes time I spent with the patient for exam, treatment plan and education as well as documenting clinical information. Orders: Orders T4 Free Direct Today E03.8 - Other specified hypothyroidism, E06.3 - Autoimmune thyroiditis Thyroid Stim Hormone (TSH) Today E03.8 - Other specified hypothyroidism, E06.3 - Autoimmune thyroiditis 04/14/22 0837 <Electronically signed by Eddie Hoyt MD> Date Eddie Hoyt MD Cosigner Signature: Date (if applicable) CC: BHARATH Castellano eDbbie Hare Work Phone: Start: 01-09-2022 End: 01-09-2022 Endocrinology Visit Report Procedure Note: See Note; NOTES: [facility] [address] [place] [address]. [address] [place] [address] OFFICE VISIT Date of Service: 01/09/22 MR#: [id number] Acct: [id number] Name: BRIAN MURRAYLYN Gonsalez Rep #: [id number] : 1990 Provider: Wallace Alcazar Age/Sex: 31/F [place] [facility] [place]: Signed Intake Vital Signs 01/09/22 11:03 Height 5 ft 6 in Weight: 169 lb BMI 27.2 BP 118/72 Blood Pressure Location Rt brachial Position Sitting Respiration 16 Pulse 58 L Pulse Source Monitor Temp 95.1 F L Temp Source Temporal Pulse Oximetry (%) 100 Oxygen Delivery Method room air Intake Visit Reasons: R/S FROM JANUARY 03 Chief Complaint: hypothyroidism Vmware Administrator Required: No Accompanied by: self Is patient in pain?: No Allergies ciprofloxacin [From Cipro] Allergy (Intermediate, Verified 01/09/22 11:05) rash penicillin G Allergy (Intermediate, Verified 01/09/22 11:05) rash metronidazole [From Flagyl] Allergy (Verified 01/09/22 11:05) Rash nickel Allergy (Verified 01/09/22 11:05) Rash PFSH Medical History Anal fissure Crohn's disease 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 Social History Smoking Status: Never smoker alcohol intake: never substance use type: does not use what type of physical activity do you participate in: none seatbelt use: always additional social history: single HPI HPI Chief Complaint: hypothyroidism Details: YAMILETH MURRAY, is a 31 F who presents to the office today for follow up. She states she was compliant with starting levothyroxine. She states she is taking 1/2 tablet every other day. TSH has risen to 14. She is more animated today, mood is improved. She continues to work with a counsellor. Exam Const General: cooperative, healthy appearing, comfortable, no acute distress, well developed and not cushingoid Nutritional Appearance: well nourished Orientation: alert, awake and oriented x3 HENMT Head: normal to inspection Ears: hearing grossly normal bilaterally Nose: external nose normal Mouth: oral mucosae normal Eyes General: appearance normal, both eyes and all related structures Alignment and Position: alignment normal Periorbital: periorbital findings normal Eyelids: eyelids normal Conjunctivae: conjunctivae normal Neck Neck: normal visual inspection Neck mass: No Thyroid: diffusely enlarged Lymphatic: no lymphadenopathy noted Chest Chest palpation inspection: normal inspection of the chest Resp Effort Inspection: normal respiratory effort, able to speak in complete sentences, symmetric chest movement, no audible wheezes and no cough Auscultation: Bilateral: Clear to Auscultation GI Inspection: normal to inspection Palpation: soft Skin General: no rashes or lesions noted Neuro General: patient alert, patient awake and patient oriented x3 Cranial Nerves: CN's II-XI intact bilaterally Cognition: normal cognition Speech: speech normal Gait: normal gait Motor: muscle tone normal throughout Extrem General: no edema Psych Appearance: grossly normal Mental Status: mental status grossly normal Mood: congruent mood Affect: normal affect Speech and Movement: speech and movement normal Attitude: cooperative Thought Process: normal Thought Content: normal Judgment: judgment good Coding Level of Care Code Off vis,est,level 2 Diagnoses 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 Eddie Hoyt MD: Thyroid continues to fail. She is agreeable to starting levothyroxine 50 mcg 1/2 tablet every day. check labs in one month. Follow up in 3 months. I encouraged her to continue the medication. I have spent [15] minutes today reviewing labs, records and history. Time includes coordinating care, interpretation of tests, discussion with patient's other health care providers via telephone. This also includes time I spent with the patient for exam, treatment plan and education as well as documenting clinical information. Plan Details Other Medications: Refilled: levothyroxine 50 mcg PO DAILY 30 tabs 3RF 01/09/22 9284 <Electronically signed by Eddie Hoyt MD> Date Eddie Hoyt MD Cosigner Signature: Date (if applicable) CC: TILE PROFESSIONAL-C Yaquelin Castellano Debbie Hare Work Phone: Start: 11-22-2021 End: 11-22-2021 Endocrinology Visit Report Comments: See Note; NOTES: [facility] [address] [place] [address] OFFICE VISIT Date of Service: 11/22/21 MR#: [id number] Acct: [id number] Name: YAMILETH MURRAY Rep #: [id number] : 1990 Provider: Wallace Alcazar Age/Sex: 31/F [place] [facility] [place]: Signed Intake Vital Signs 11/22/21 08:37 Height 5 ft 6 in Weight: 168 lb 4 oz BMI 27.1 BP 124/82 H Blood Pressure Location Lt brachial Position Sitting Respiration 16 Pulse 63 Pulse Source Monitor Temp 96.5 F L Temp Source Temporal Pulse Oximetry (%) 97 Oxygen Delivery Method room air Intake Visit Reasons: 2 M FU Chief Complaint: hypothyroidism Vmware Administrator Required: No Accompanied by: daughter Is patient in pain?: No Allergies ciprofloxacin [From Cipro] Allergy (Intermediate, Verified 11/22/21 08:42) rash penicillin G Allergy (Intermediate, Verified 11/22/21 08:42) rash metronidazole [From Flagyl] Allergy (Verified 11/22/21 08:42) Rash nickel Allergy (Verified 11/22/21 08:42) Rash PFSH Medical History Anal fissure Crohn's disease 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 Social History Smoking Status: Never smoker alcohol intake: never substance use type: does not use what type of physical activity do you participate in: none seatbelt use: always additional social history: single HPI HPI Chief Complaint: hypothyroidism Details: YAMILETH MURRAY, is a 31 F who presents to the office today for follow up. 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 She does is fearful of medications due to a bad experience she had with a medication for IBD. She is seeing a counselor. She states things are improving very slowly. Her sister was recently diagnosed with Nate's/hypothyroidism. Exam Const General: cooperative, comfortable and no acute distress Nutritional Appearance: well nourished Orientation: alert, awake and oriented x3 HENMT Head: normal to inspection Other: puffiness of face Eyes General: appearance normal, both eyes and all related structures Neck Thyroid: diffusely enlarged Resp Effort Inspection: normal respiratory effort, able to speak in complete sentences, symmetric chest movement, no audible wheezes and no cough Cardio Rate: regular rate Rhythm: regular rhythm Psych Other: She appears less anxious today. 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 Eddie Hoyt MD: She agrees to start levothyroxine 50 mcg, ONE TABLET PER WEEK. I am hoping she will begin to trust me and the medication. Follow up in 2 months. I have spent [15] minutes today reviewing labs, records and history. Time includes coordinating care, interpretation of tests, discussion with patient's other health care providers via telephone. This also includes time I spent with the patient for exam, treatment plan and education as well as documenting clinical information. Plan Details Other Medications: New: levothyroxine 50 mcg PO DAILY 30 tabs 1RF 11/22/21 0900 <Electronically signed by Eddie Hoyt MD> Date Eddie Hoyt MD Cosigner Signature: Date (if applicable) CC: TILE PROFESSIONALJimC Debbie Hare Work Phone: Start: 08-29-2021 End: 08-30-2021 Endocrinology Visit Report Comments: See Note; NOTES: [facility] [address] [place] [address] OFFICE VISIT Date of Service: 08/29/21 MR#: [id number] Acct: [id number] Name: YAMILETH MURRAY Rep #: [id number] : 1990 Provider: Wallace Alcazar Age/Sex: 31/F [place] [facility] [place]: Signed Intake Vital Signs 08/29/21 16:41 Height 5 ft 6 in Weight: 164 lb BMI 26.4 BP 118/68 Blood Pressure Location Rt brachial Position Sitting Respiration 16 Pulse 81 Pulse Source Monitor Temp 96.3 F L Temp Source Temporal Pulse Oximetry (%) 99 Oxygen Delivery Method room air Intake Visit Reasons: 3 M FU Chief Complaint: hypothyroidism Allergies ciprofloxacin [From Cipro] Allergy (Intermediate, Verified 08/29/21 16:32) rash penicillin G Allergy (Intermediate, Verified 08/29/21 16:32) rash metronidazole [From Flagyl] Allergy (Verified 08/29/21 16:32) Rash nickel Allergy (Verified 08/29/21 16:32) Rash Medications sulfamethoxazole-trimethopri m 1 tab PO BID #6 tablet 01/31/21 [Rx Confirmed 08/29/21] cholecalciferol (vitamin D3) 125 mcg (5,000 unit) capsule 125 mcg PO DAILY 06/21/21 [History Confirmed 08/29/21] [facility] Medical History Anal fissure Crohn's disease 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 Social History Smoking Status: Never smoker alcohol intake: never substance use type: does not use what type of physical activity do you participate in: none seatbelt use: always additional social history: single HPI HPI Chief Complaint: hypothyroidism Details: YAMILETH MURRAY, is a 31 F who presents to the office today for follow up. She has significant hypothyroidism. TSH recently worsened to 19. She has mistrust of doctors and medications due to a bad experience with a IBD medication. Since last appointment she has started therapy. She has not addressed her fear of medications with her therapist yet. The patient is tearful and states she will not start thyroid medication today. Exam Const General: cooperative, healthy appearing, comfortable, no acute distress, well developed and not cushingoid Nutritional Appearance: well nourished Orientation: alert, awake and oriented x3 Other: puffy face, appears hypothyroid HENMT Head: normal to inspection Ears: hearing grossly normal bilaterally Nose: external nose normal Mouth: oral mucosae normal Eyes General: appearance normal, both eyes and all related structures Alignment and Position: alignment normal Periorbital: periorbital findings normal Eyelids: eyelids normal Conjunctivae: conjunctivae normal Neck Neck: normal visual inspection Neck mass: No Thyroid: diffusely enlarged Carotids: no bruits Lymphatic: no lymphadenopathy noted Chest Chest palpation inspection: normal inspection of the chest Resp Effort Inspection: normal respiratory effort, able to speak in complete sentences, symmetric chest movement, no audible wheezes and no cough Auscultation: Bilateral: Clear to Auscultation Cardio Rate: regular rate Rhythm: regular rhythm Pulses: posterior tibial pulses present GI Inspection: normal to inspection Palpation: soft Skin General: no rashes or lesions noted Neuro General: patient alert, patient awake, patient oriented x3 and other (delayed relaxation phase of DTR) Cranial Nerves: CN's II-XI intact bilaterally Cognition: normal cognition Speech: speech normal Gait: normal gait Motor: muscle tone normal throughout Extrem General: no edema Psych Appearance: grossly normal Mental Status: mental status grossly normal Mood: congruent mood Affect: normal affect Speech and Movement: speech and movement normal Attitude: cooperative Thought Process: normal Thought Content: normal Judgment: judgment good Coding Level of Care Code Off vis,est,level 3 Diagnoses 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 Eddie Hoyt MD: I counseled the patient regarding levothyroxine and Tirosint. I counseled her regarding the consequences of untreated hypothyroidism including coma and . I encouraged her to start treatment, she refuses. She agrees to address her medical fears with her therapist. Follow up in 8 weeks. I have spent [25] minutes today reviewing labs, records and history. Time includes coordinating care, interpretation of tests, discussion with patient's other health care providers via telephone. This also includes time I spent with the patient for exam, treatment plan and education as well as documenting clinical information. 08/30/21 0743 <Electronically signed by Eddie Hoyt MD> Date Eddie Hoyt MD Cosigner Signature: Date (if applicable) CC: BHARATH Hare Debbie Hare Work Phone: Start: 06-21-2021 End: 06-22-2021 Endocrinology Visit Report Comments: See Note; NOTES: [facility] [address] [place] [address] [address] [place] [address] OFFICE VISIT Date of Service: 06/21/21 MR#: [id number] Acct: [id number] Name: YAMILETH MURRAY Rep #: [id number] : 1990 Provider: Wallace Alcazar Age/Sex: 30/F [place] [facility] [place]: Signed Intake Vital Signs 06/21/21 08:26 Height 5 ft 6 in Weight: 163 lb 2 oz BMI 26.3 BP 110/80 Blood Pressure Location Lt brachial Position Sitting Respiration 16 Pulse 59 L Pulse Source Monitor Temp 97.0 F L Temp Source Temporal Pulse Oximetry (%) 97 Oxygen Delivery Method room air Intake Visit Reasons: [id number]-IZV MIALED Chief Complaint: hypothyroidism Vmware Administrator Required: No Accompanied by: self Is patient in pain?: No Allergies ciprofloxacin [From Cipro] Allergy (Intermediate, Verified 06/21/21 08:30) rash penicillin G Allergy (Intermediate, Verified 06/21/21 08:30) rash metronidazole [From Flagyl] Allergy (Verified 06/21/21 08:30) Rash nickel Allergy (Verified 06/21/21 08:30) Rash [facility] Medical History Anal fissure Crohn's disease 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 Social History Smoking Status: Never smoker alcohol intake: never substance use type: does not use what type of physical activity do you participate in: none seatbelt use: always additional social history: single HPI HPI Chief Complaint: hypothyroidism Details: YAMILETH MURRAY, is a 30 F who presents to the office today for evaluation and management of hypothyroidism The patient presented for wellness check. She had not been to the doctor for 3 years. She was found to have elevated TSH with presence of thyroid antibodies. The problem is that the patient does not want to take ANY medications. She reports that she has Crohn's disease and was told that if she didn't take medications she could . She took azothioprine and she was on Cipro for an infection. She states she had terrible side affects of the medications including a tendon rupture. She is tearful during the interview. When I told her that untreated hypothyroidism is fatal and that levothyroxine is the same hormone her thyroid makes, she asks me how long it will take hypothyroidism to kill her because she still doesn't want to take it. Exam Const General: cooperative, healthy appearing, comfortable, no acute distress, well developed and not cushingoid Nutritional Appearance: well nourished Orientation: alert, awake and oriented x3 HENMT Head: normal to inspection Ears: hearing grossly normal bilaterally Nose: external nose normal Mouth: oral mucosae normal Eyes General: appearance normal, both eyes and all related structures Alignment and Position: alignment normal Periorbital: periorbital findings normal Eyelids: eyelids normal Conjunctivae: conjunctivae normal Neck Neck: normal visual inspection Neck mass: No Thyroid: diffusely enlarged (minimal enlargement) Lymphatic: no lymphadenopathy noted Chest Chest palpation inspection: normal inspection of the chest Resp Effort Inspection: normal respiratory effort, able to speak in complete sentences, symmetric chest movement, no audible wheezes and no cough Cardio Rate: regular rate Rhythm: regular rhythm GI Inspection: normal to inspection Palpation: soft Skin General: no rashes or lesions noted Neuro General: patient alert, patient awake and patient oriented x3 Cranial Nerves: CN's II-XI intact bilaterally Cognition: normal cognition Speech: speech normal Gait: normal gait Motor: muscle tone normal throughout Extrem General: no edema Psych Appearance: grossly normal Mental Status: mental status grossly normal Mood: anxious mood Affect: anxious affect and tearful Speech and Movement: speech and movement normal Attitude: cooperative Thought Process: normal Thought Content: normal Judgment: poor Coding Level of Care Code Off vis,new,level 5 Diagnoses 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 Eddie Hoyt MD: I counseled the patient regarding thyroid physiology. She basically has PTSD regarding he diagnosis and response to treatment of Crohn's disease. I asked her to seek counseling and she agrees to do this. She will not start thyroid medication at this time. Follow up in a few months to repeat labs and to see if she makes progress in counseling. I explained to her that she is making poor decisions for her health. I have spent [62] minutes today reviewing labs, records and history. Time includes coordinating care, interpretation of tests, discussion with patient's other health care providers via telephone. This also includes time I spent with the patient for exam, treatment plan and education as well as documenting clinical information. 06/21/21 2022 <Electronically signed by Eddie Hoyt MD> Date Eddie Hoyt MD Cosigner Signature: Date (if applicable) CC: TILE PROFESSIONAL-C Debbie Hare Work Phone: Anal Fissure removal 1998 Galindo Peace LPN Anal Fissure removal 1998 Starr Bailey INSPECTOR WATER POLLUTION CONTROL Anal Fissure removal 1998 Kayla Slarb CIRCULATION ASSISTANT Anal Fissure removal 1998 Anastasiya Whittaker MA Anal Fissure removal 1998 Kayla Slarb CIRCULATION ASSISTANT OBGYN- Marcanthony Galindo Da vis CIRCULATION ASSISTANT OBGYN- Marcanthony Starr Gr avius INSPECTOR WATER POLLUTION CONTROL OBGYN- Marcanthony Kayla Sl arb CIRCULATION ASSISTANT OBGYN- Marcanthony Anastasiya Adrian rphy MA OBGYN- Marcanthony Kayla Sl arb CIRCULATION ASSISTANT Plan of Treatment Date Care Activity Detail Author Start: 03-05-2023 Procedure Education Eprescribed prescriptions (G8553) [facility] Work Phone: Start: 03-05-2023 Provider Instructions for Treatment Follow up in 1 year or as needed [facility]; [facility] Work Phone: Start: 02-26-2023 25 hydroxy includes fractions if performed CALCIFEDIOL (28504) [facility]; [facility] Work Phone: Start: 02-26-2023 Antibody beatrice-martinez eb virus nuclear ag ebna EBV Antibody Profile (05245) [facility]; [facility] Work Phone: Start: 02-26-2023 Assay of thyroid stimulating hormone tsh TSH (THYROID STIMULATING HORMONE) (15889) [facility]; [facility] Work Phone: Start: 02-26-2023 Blood count complete auto&auto difrntl wbc CBC, PLATELETS & AUT DIFF (89955) [facility]; [facility] Work Phone: Start: 02-26-2023 Comprehensive metabolic panel METABOLIC PANEL, COMPREHENSIVE (64050) [facility]; [facility] Work Phone: Start: 02-26-2023 Cyanocobalamin vitamin b-12 VITAMIN B12 AND FOLATES (16762) [facility]; [facility] Work Phone: Start: 02-26-2023 Procedure Education Eprescribed prescriptions (G8553) [facility]; [facility] Work Phone: Start: 02-26-2023 Provider Instructions for Treatment Follow up - Keep appt as scheduled [facility]; [facility] Work Phone: Start: 02-26-2023 Urinalysis qual/semiquant except immunoassays URINALYSIS (38771) [facility]; [facility] Work Phone: Start: 11-03-2022 Procedure Education Eprescribed prescriptions (G8553) [facility]; [facility] Work Phone: Start: 11-03-2022 Provider Instructions for Treatment Follow up if no improvement or if symptoms worsen [facility]; [facility] Work Phone: Start: 11-03-2022 Throat culture THROAT CULTURE (01800) [facility]; [facility] Work Phone: Start: 12-14-2021 Procedure Education Eprescribed prescriptions (G8553) [facility]; [facility] Work Phone: Start: 12-14-2021 Cul bact xcpt urine blood/stool aerobic isol Throat Culture (74499) [facility]; [facility] Work Phone: Start: 06-13-2021 Assay of free thyroxine T4, FREE (THYROXINE) (78045) [facility]; [facility] Work Phone: Start: 06-13-2021 Assay of triiodothyronine t3 free T3, FREE (TRIDOTHYRONINE) (32409) [facility]; [facility] Work Phone: Start: 06-13-2021 Assay of thyroid stimulating hormone tsh TSH (THYROID STIMULATING HORMONE) (68254) [facility]; [facility] Work Phone: Start: 06-13-2021 Procedure Education Eprescribed prescriptions (G8553) [facility]; [facility] Work Phone: Start: 04-11-2021 Patient Education Hypothyroidism: Brief Version *: nate's disease [facility]; [facility] Work Phone: Start: 04-11-2021 Procedure Education Eprescribed prescriptions (G8553) [facility]; [facility] Work Phone: Start: 04-11-2021 Provider Instructions for Treatment [facility]; [facility] Work Phone: Start: 03-15-2021 Procedure Education Eprescribed prescriptions (G8553) [facility]; [facility] Work Phone: Start: 03-15-2021 Provider Instructions for Treatment [facility]; [facility] Work Phone: Start: 03-08-2021 Assay of thyroid stimulating hormone tsh TSH (68680) [facility]; [facility] Work Phone: Start: 03-08-2021 Blood count complete auto&auto difrntl wbc CBC, Platelets & Auto Diff (39539) [facility]; [facility] Work Phone: Start: 03-08-2021 Comprehensive metabolic panel Metabolic Panel, Comprehensive (96115) [facility]; [facility] Work Phone: Start: 03-08-2021 Procedure Education Eprescribed prescriptions (G8553) [facility]; [facility] Work Phone: Start: 03-08-2021 Provider Instructions for Treatment Follow up in 1 week virtual [facility]; [facility] Work Phone: [facility] Work Phone: [facility] Work Phone: Payers Date Payer Category Payer Private Health Insurance [id number] 2020 Private Health Insurance [id number] 1990 Unknown [id number] Private Health Insurance [id number] Unknown Social History Date Type Detail Facility Alcohol Use: Alcohol Use: [facility] Work Phone: Caffeine Use Caffeine Use [facility] Work Phone: Instructions Note Date & Type Note Facility [facility]; [facility] Work Phone: Instructions Note Date & Type Note Facility [facility]; [facility] Work Phone: Instructions Note Date & Type Note Facility [facility]; [facility] Work Phone: Instructions Note Date & Type Note Facility [facility]; [facility] Work Phone: Instructions Note Date & Type Note Facility [facility]; [facility] Work Phone: Instructions Note Date & Type Note Facility [facility]; [facility] Work Phone: Instructions Note Date & Type Note Facility [facility]; [facility] Work Phone: Instructions Note Date & Type Note Facility [facility]; [facility] Work Phone: Family History Unknown Family Member Name Dates Details Alcohol Abuse Comments:G Status:Active Autoimmune- F-MS, M,B-UC Status:Active Breast CA- M Status:Active DM type 2- F Status:Active Emotional/Mental- M,G,S Status:Active HTN-F Status:Active Thyroid-G Status:Active Unknown Family Member Name Dates Details Alcohol Abuse Comments:G Status:Active Autoimmune- F-MS, M,B-UC Status:Active Breast CA- M Status:Active DM type 2- F Status:Active Emotional/Mental- M,G,S Status:Active HTN-F Status:Active Thyroid-G Status:Active Unknown Family Member Name Dates Details Alcohol Abuse Comments:G Status:Active Autoimmune- F-MS, M,B-UC Status:Active Breast CA- M Status:Active DM type 2- F Status:Active Emotional/Mental- M,G,S Status:Active HTN-F Status:Active Thyroid-G Status:Active Unknown Family Member Name Dates Details Alcohol Abuse Comments:G Status:Active Autoimmune- F-MS, M,B-UC Status:Active Breast CA- M Status:Active DM type 2- F Status:Active Emotional/Mental- M,G,S Status:Active HTN-F Status:Active Thyroid-G Status:Active Unknown Family Member Name Dates Details Alcohol Abuse Comments:G Status:Active Autoimmune- F-MS, M,B-UC Status:Active Breast CA- M Status:Active DM type 2- F Status:Active Emotional/Mental- M,G,S Status:Active HTN-F Status:Active Thyroid-G Status:Active Unknown Family Member Name Dates Details Alcohol Abuse Comments:G Status:Active Autoimmune- F-MS, M,B-UC Status:Active Breast CA- M Status:Active DM type 2- F Status:Active Emotional/Mental- M,G,S Status:Active HTN-F Status:Active Thyroid-G Status:Active Unknown Family Member Name Dates Details Alcohol Abuse Comments:G Status:Active Autoimmune- F-MS, M,B-UC Status:Active Breast CA- M Status:Active DM type 2- F Status:Active Emotional/Mental- M,G,S Status:Active HTN-F Status:Active Thyroid-G Status:Active Unknown Family Member Name Dates Details Alcohol Abuse Comments:G Status:Active Autoimmune- F-MS, M,B-UC Status:Active Breast CA- M Status:Active DM type 2- F Status:Active Emotional/Mental- M,G,S Status:Active HTN-F Status:Active Thyroid-G Status:Active Summary Purpose Advance Directives No Advanced Directives Records Found Additional Source Comments INFORMATION SOURCE (unrecogn ized section and content) FOR RECORDS PERTAINING TO PATIENTS WHO ARE OR HAVE BEEN ENROLLED IN A CHEMICAL DEPENDENCY/SUBSTANCEABUSE PROGRAM, SOME INFORMATION MAY BE OMITTED. This clinical summary was aggregated from multiple sources. Caution should be exercised in using it in the provision of clinical care. This summary normalizes information from multiple sources, and as a consequence, information in this document may materially change the coding, format and clinical context of patient data. In addition, data may be omitted in some cases. CLINICAL DECISIONS SHOULD BE BASED ON THE PRIMARY CLINICAL RECORDS. [employer] [facility]. provides no warranty or guarantee of the accuracy or completeness of information in this document.
[2023-10-01 10:37] LABS: T4 Free Direct 1.11 ng/dL (0.76-1.46)
== END | disposition home or self-care (01) ==
PROVIDERS: PCP Nurse Practitioner Family; Referring Provider Internal Medicine Endocrinology, Diabetes & Metabolism; Visit Provider Internal Medicine Endocrinology, Diabetes & Metabolism
DX: E03.8 Other specified hypothyroidism (principal); E06.3 Autoimmune thyroiditis
CPT/HCPCS: 36415; 84439; 84443

== ENCOUNTER → 2024-10-11 | Outpatient (CLI) | payer OTHER, SELFPAY ==
[2024-10-11 10:50] LABS: T4 Free Direct 0.97 ng/dL (0.76-1.46)
== END | disposition home or self-care (01) ==
LOC: LAB 10:09
PROVIDERS: PCP Nurse Practitioner Family; Referring Provider Internal Medicine Endocrinology, Diabetes & Metabolism; Visit Provider Internal Medicine Endocrinology, Diabetes & Metabolism
DX: E03.8 Other specified hypothyroidism (principal); E06.3 Autoimmune thyroiditis
CPT/HCPCS: 36415; 84439; 84443

== ENCOUNTER → 2024-12-08 | Outpatient (CLI) | payer OTHER, SELFPAY | END | disposition home or self-care (01) | LOC: PSN 07:31 | PROVIDERS: PCP Nurse Practitioner Family; Referring Provider Internal Medicine Endocrinology, Diabetes & Metabolism; Visit Provider Internal Medicine Endocrinology, Diabetes & Metabolism | DX: R00.1 Bradycardia, unspecified (principal) | CPT/HCPCS: 93225; 93226 ==

== ENCOUNTER → 2025-02-25 | Outpatient (CLI) | payer OTHER, SELFPAY ==
[2025-02-25 11:22] LABS: Cholesterol 162 mg/dL (<=200); Low Density Lipoprotein Calc. 97 mg/dL; Triglycerides 83 mg/dL; Very Low Density Lipoprotein 17 mg/dL (5-40); cholesterol:hdl ratio screen 3.32
== END | disposition home or self-care (01) ==
LOC: LAB 09:37
PROVIDERS: Internal Medicine Cardiovascular Disease; PCP Nurse Practitioner Family; Referring Provider Internal Medicine Endocrinology, Diabetes & Metabolism; Visit Provider Internal Medicine Endocrinology, Diabetes & Metabolism
DX: E03.8 Other specified hypothyroidism (principal); E06.3 Autoimmune thyroiditis; R00.1 Bradycardia, unspecified
CPT/HCPCS: 36415; 80061; 84439; 84443